=== PATIENT | male | born 1950 | race Caucasian/White ===

== ENCOUNTER 2016-10-19 02:18 | Emergency (ER) | payer MEDICARE ==
--- NOTE | 2016-10-19 02:24 | EDM.PDOC ---
ED HPI GENERAL MEDICAL PROBLEM - General Chief Complaint: General Stated Complaint: UNKNOWN Time Seen by Provider: 10/19/16 02:20 - History of Present Illness INITIAL COMMENTS - FREE TEXT/NARRATIVE: 66-year-old male brought into the emergency room by his brother with frustration and anxiety. Patient is upset claims that nobody is listening to him. The patient is the primary caregiver of 2 elderly parents with multiple health problems and he feels that he is not getting the help he should from other family members. The patient's brother tried to console him however this was not very beneficial. 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 The patient's brother is concerned the patient is getting more irrational and he is unable to cope with taking care of his parents. - Related Data Allergies Allergy/AdvReac Type Severity Reaction Status Date / Time No Known Allergies Allergy Verified 06/05/16 13:03 Home Meds: Home Meds LORazepam [Ativan] 0.5 mg PO Q12H PRN #10 tablet 10/19/16 [Rx] Past Medical History HEENT History: Reports: Cataract Cardiovascular History: Reports: High cholesterol Respiratory History: Reports: None Gastrointestinal History: Reports: Hemorrhoids, Other (see below) Other Gastrointestinal History: difficulty swallowing with eating at times Genitourinary History: Reports: BPH Hematologic History: Reports: Anemia Oncologic (Cancer) History: Reports: None - Infectious Disease History Infectious Disease History: Reports: Chicken pox, Measles, Mumps - Past Surgical History HEENT Surgical History: Reports: Cataract surgery Other HEENT Surgeries/Procedures: calcification in neck Cardiovascular Surgical History: Reports: None GI Surgical History: Reports: Colonoscopy Male Surgical History: Reports: None Dermatological Surgical History: Reports: None Social & Family History - Family History Family Medical History: Noncontributory HEENT: Reports: Hearing impairment, Macular degeneration Other HEENT Family History: MOM- hearing aide, both parents had cataracts Cardiac: Reports: Afib, High cholesterol, [place] Respiratory: Reports: Asthma Other Respiratory Family Hisory: brother GI: Reports: Cholelithiasis, Chronic diarrhea, GERD, Hiatal hernia, Other (see below) Other GI Family History: bowel resection mom : Reports: Other (see below) Other Family History: Dad- BPH OBGYN: Reports: , Other (see below) Other OBGYN Family History: hysterectomy and bladder life Musculoskeletal: Reports: Arthritis, Gout, Osteoporosis Other Musculoskeletal Family History: both parents, mom gout and osteoperosis Neurological: Reports: CVA Endocrine/Metabolic: Reports: Hypothyroidism Other Endocrine/Metabolic Family History: MOM borderline diabetic and hypothroid Hematologic: Reports: Anemia Dermatologic: Reports: Psoriasis Other Dermatologic Family History: brother Oncologic: Reports: Prostate Other Oncologic Family History: dad - Tobacco Use Smoking Status *Q: Never Smoker Second Hand Smoke Exposure: No - Alcohol Use Days Per Week of Alcohol Use: 0 - Recreational Drug Use Recreational Drug Use: No ED ROS GENERAL - Review of Systems Review Of Systems: See Below Constitutional: Reports: no symptoms Respiratory: Reports: No Symptoms Cardiovascular: Reports: No symptoms GI/Abdominal: Reports: No symptoms Neurological: Denies: Confusion, Dizziness, Headache, Numbness, Trouble Speaking , Weakness Psychiatric: Reports: Agitation, Anxiety, Depression, Mood lability. Denies: Confusion, Cravings, Hallucinations, Homicidal ideation, Suicidal ideation ED EXAM, GENERAL - Physical Exam Exam: See Below Exam Limited By: No limitations General Appearance: alert, no apparent distress Head: atraumatic, normocephalic Neck: normal inspection, supple, non-tender, full range of motion Respiratory/Chest: no respiratory distress, lungs clear, normal breath sounds Cardiovascular: regular rate, rhythm, no edema, no murmur GI/Abdominal: Normal Bowel Sounds, Soft, Non-Tender Back Exam: normal inspection. No: CVA tenderness (L), CVA tenderness (R) Psychiatric: anxious, other (Patient denies any suicidal thoughts or ideation) Course - Vital Signs Last Recorded V/S: Last Vital Signs Temp 36.2 C 10/19/16 02:20 Pulse 24 L 10/19/16 02:20 Resp 22 H 10/19/16 02:20 BP 153/89 H 10/19/16 02:20 Pulse Ox 100 10/19/16 02:20 - Orders/Labs/Meds Meds: Medications Discontinued Medications Generic Name Dose Route Start Last Admin Trade Name Freq PRN Reason Stop Dose Admin Lorazepam 0.5 mg 10/19/16 04:06 10/19/16 04:14 Ativan PO 10/19/16 04:07 0.5 mg ONETIME ONE Administration - Re-Assessments/Exams Free Text/Narrative Re-Assessment/Exam: 10/19/16 04:14 Long discussion with the patient and his brother on ways to assess the external stressors going on in the problems the face caring for elderly parents. As the patient is the primary caregiver he carries a heavy burden. The patient feels that at times his family is not contributing as much as they could. This could be exaggerated by the fact that he is the primary caregiver and the other family members have their own busy lifes and schedules. Patient is willing to pursue a counselor. He is willing to try Ativan for the more stressful times. And he agrees to return to the emergency room with any problems. Patient was questioned. He admits to perhaps to being a little depressed he certainly has some anxiety. He denies any suicidal thoughts or wishes and certainly does not want hurt anyone. Departure - Departure Time of Disposition: 04:07 Disposition: Home, Self-Care 01 Clinical Impression: Anxiety - Discharge Information Prescriptions: LORazepam [Ativan] 0.5 mg PO Q12H PRN #10 tablet PRN Reason: Anxiety Referrals: PCP,Unknown [Primary Care Provider] - Praveen Amin MD [Physician] - Forms: ED Department Discharge Additional Instructions: Return to the emergency room with any questions or problems. Followup with [facility] services tomorrow. Call this morning to schedule an appointment. [phone]. You have been given a prescription for Ativan. This will help with anxiety take one tablet as needed every 12 hours. This can cause some mild sedation allow 12 hours after taking this medication before driving or returning to work. Followup with your regular physician later this week.
[2016-10-19 02:33] VITALS: BP 153/89
[2016-10-19] MEDS ORDERED: LORazepam 0.5 MG Tab PO ONE (04:06)
== END 2016-10-19 04:50 | disposition home or self-care (01) ==
LOC: JD.ED 02:18
DX: F41.9 Anxiety disorder, unspecified (principal); E78.00 Pure hypercholesterolemia, unspecified; D64.9 Anemia, unspecified; Z98.49 Cataract extraction status, unspecified eye; Z98.890 Other specified postprocedural states
CPT/HCPCS: 99283; A9270

== ENCOUNTER 2019-03-15 08:47 | Emergency (ER) | payer MEDICARE, OTHER ==
[2019-03-15 09:15] VITALS: BP 165/83; PULSE 87
--- NOTE | 2019-03-15 09:30 | EDM.PDOC ---
ED HPI GENERAL MEDICAL PROBLEM - General Chief Complaint: Fever Stated Complaint: POST SURGICAL ISSUES Time Seen by Provider: 03/15/19 09:23 - History of Present Illness INITIAL COMMENTS - FREE TEXT/NARRATIVE: 68-year-old male presents to the emergency room generally not feeling well. Patient had a left total knee replacement done on Monday at [facility] in [place] with Dr. Cox. Since that time he generally has not been feeling well. Patient cannot describe it. He reports no complications postoperatively. He was discharged from the hospital on Monday. The patient did fall but did not injure his knee on the day of discharge.. He's had no nausea or vomiting no worsening cough. No dysuria or urinary difficulties. He has been having some fevers he was 101.8 at the [facility] clinic across the street prior to coming here. The patient states she's had fevers 101.6 at home intermittently - Related Data Allergies Allergy/AdvReac Type Severity Reaction Status Date / Time No Known Allergies Allergy Verified 06/05/16 13:03 Home Meds: Home Meds LORazepam [Ativan] 0.5 mg PO Q12H PRN #10 tablet 10/19/16 [Rx] Past Medical History HEENT History: Reports: Cataract Cardiovascular History: Reports: High Cholesterol Respiratory History: Reports: None Gastrointestinal History: Reports: Hemorrhoids, Other (See Below) Other Gastrointestinal History: difficulty swallowing with eating at times Genitourinary History: Reports: BPH Hematologic History: Reports: Anemia Oncologic (Cancer) History: Reports: None - Infectious Disease History Infectious Disease History: Reports: Chicken Pox, Measles, Mumps - Past Surgical History HEENT Surgical History: Reports: Cataract Surgery Male Surgical History: Reports: None Musculoskeletal Surgical History: Reports: Knee Replacement, Other (See Below) Dermatological Surgical History: Reports: None Social & Family History - Family History Family Medical History: Noncontributory HEENT: Reports: Hearing Impairment, Macular Degeneration Other HEENT Family History: MOM- hearing aide, both parents had cataracts Cardiac: Reports: Afib, High Cholesterol, [place] Respiratory: Reports: Asthma Other Respiratory Family Hisory: brother GI: Reports: Cholelithiasis, Chronic Diarrhea, GERD, Hiatal Hernia, Other (See Below) Other GI Family History: bowel resection mom : Reports: Other (See Below) Other Family History: Dad- BPH OBGYN: Reports: , Other (See Below) Other OBGYN Family History: hysterectomy and bladder life Musculoskeletal: Reports: Arthritis, Gout, Osteoporosis Other Musculoskeletal Family History: both parents, mom gout and osteoperosis Neurological: Reports: CVA Endocrine/Metabolic: Reports: Hypothyroidism Other Endocrine/Metabolic Family History: MOM borderline diabetic and hypothroid Hematologic: Reports: Anemia Dermatologic: Reports: Psoriasis Other Dermatologic Family History: brother Oncologic: Reports: Prostate Other Oncologic Family History: dad - Tobacco Use Smoking Status *Q: Never Smoker - Recreational Drug Use Recreational Drug Use: No ED ROS GENERAL - Review of Systems Review Of Systems: See Below Constitutional: Reports: Fever, Chills. Denies: No Symptoms HEENT: Reports: No Symptoms Respiratory: Reports: No Symptoms Cardiovascular: Reports: No Symptoms GI/Abdominal: Reports: No Symptoms : Reports: No Symptoms Musculoskeletal: Reports: No Symptoms Skin: Reports: No Symptoms Neurological: Reports: No Symptoms Hematologic/Lymphatic: Reports: No Symptoms ED EXAM, GENERAL - Physical Exam Exam: See Below Exam Limited By: No Limitations General Appearance: Alert, No Apparent Distress, Other (He is afebrile here vital signs otherwise looks stable but it sounds like he had a fever across the street) Head: Atraumatic, Normocephalic Neck: Normal Inspection, Supple, Non-Tender, Full Range of Motion Respiratory/Chest: No Respiratory Distress, Lungs Clear, Normal Breath Sounds, No Accessory Muscle Use, Chest Non-Tender Cardiovascular: Normal Peripheral Pulses, Regular Rate, Rhythm, No Edema, No Murmur GI/Abdominal: Normal Bowel Sounds, Soft, Non-Tender Back Exam: Normal Inspection. No: CVA Tenderness (L), CVA Tenderness (R) Extremities: Normal Inspection, Other (Incision over the left knee looks clean and dry no drainage no abnormal erythema he's got some surrounding bruising noted no calf tenderness) Neurological: Alert, Oriented, Normal Cognition Course - Vital Signs Last Recorded V/S: Last Vital Signs Temp 37.3 C 03/15/19 09:15 Pulse 87 03/15/19 09:15 Resp 16 03/15/19 09:15 BP 165/83 H 03/15/19 09:15 Pulse Ox 95 03/15/19 09:15 - Orders/Labs/Meds Orders: Active Orders 24 hr Category Date Time Status EKG Documentation Completion [RC] STAT Care 03/15/19 09:31 Active CULTURE BLOOD [BC] Stat Lab 03/15/19 09:54 Received CULTURE BLOOD [BC] Stat Lab 03/15/19 10:02 Received Blood Culture x2 Reflex Set [OM.PC] Stat Oth 03/15/19 09:37 Ordered Labs: Laboratory Tests 03/15/19 03/15/19 03/15/19 Range/Units 09:17 09:40 09:40 WBC 12.03 H (4.23-9.07) K/mm3 RBC 3.65 L (4.63-6.08) M/mm3 Hgb 11.2 L D (13.7-17.5) gm/dl Hct 32.8 L (40.1-51.0) % MCV 89.9 D (79.0-92.2) fl MCH 30.7 (25.7-32.2) pg MCHC 34.1 (32.2-35.5) g/dl RDW Std Deviation 43.2 (35.1-43.9) fL Plt Count 189 (163-337) K/mm3 MPV 8.6 L (9.4-12.3) fl Neutrophils % (Manual) 85 H (40-60) % Band Neutrophils % 0 (0-10) % Lymphocytes % (Manual) 7 L (20-40) % Atypical Lymphs % 0 % Monocytes % (Manual) 5 (2-10) % Eosinophils % (Manual) 2 (0.8-7.0) % Basophils % (Manual) 1 (0.2-1.2) Platelet Estimate Adequate RBC Morph Comment Normal ESR 56 H (0-15) mm/hr Sodium (136-145) mEq/L Potassium (3.5-5.1) mEq/L Chloride (98-107) mEq/L Carbon Dioxide (21-32) mEq/L Anion Gap (5-15) BUN (7-18) mg/dL Creatinine (0.7-1.3) mg/dL Est Cr Clr Drug Dosing Estimated GFR (MDRD) (>60) mL/min BUN/Creatinine Ratio (14-18) Glucose (80-115) mg/dL Calcium (8.5-10.1) mg/dL Total Bilirubin (0.2-1.0) mg/dL AST (15-37) U/L ALT (16-63) U/L Alkaline Phosphatase (46-116) U/L Troponin I (0.00-0.056) ng/mL C-Reactive Protein (<1.0) mg/dL Total Protein (6.4-8.2) g/dl Albumin (3.4-5.0) g/dl Globulin gm/dL Albumin/Globulin Ratio (1-2) Urine Color Yellow (Yellow) Urine Appearance Clear (Clear) Urine pH 7.0 (5.0-8.0) Ur Specific [place] 1.020 (1.005-1.030) Urine Protein Trace H (Negative) Urine Glucose (UA) Negative (Negative) Urine Ketones Negative (Negative) Urine Occult Blood Negative (Negative) Urine Nitrite Negative (Negative) Urine Bilirubin Negative (Negative) Urine Urobilinogen 1.0 (0.2-1.0) Ur Leukocyte Esterase Negative (Negative) Urine RBC 0-5 (0-5) /hpf Urine WBC 0-5 (0-5) /hpf Ur Squamous Epith Cells 0-5 (0-5) /hpf Urine Bacteria Few (FEW) /hpf Urine Mucus Few (FEW) /hpf 03/15/19 Range/Units 09:40 WBC (4.23-9.07) K/mm3 RBC (4.63-6.08) M/mm3 Hgb (13.7-17.5) gm/dl Hct (40.1-51.0) % MCV (79.0-92.2) fl MCH (25.7-32.2) pg MCHC (32.2-35.5) g/dl RDW Std Deviation (35.1-43.9) fL Plt Count (163-337) K/mm3 MPV (9.4-12.3) fl Neutrophils % (Manual) (40-60) % Band Neutrophils % (0-10) % Lymphocytes % (Manual) (20-40) % Atypical Lymphs % % Monocytes % (Manual) (2-10) % Eosinophils % (Manual) (0.8-7.0) % Basophils % (Manual) (0.2-1.2) Platelet Estimate RBC Morph Comment ESR (0-15) mm/hr Sodium 133 L (136-145) mEq/L Potassium 3.9 (3.5-5.1) mEq/L Chloride 100 (98-107) mEq/L Carbon Dioxide 26 (21-32) mEq/L Anion Gap 10.9 (5-15) BUN 15 (7-18) mg/dL Creatinine 1.1 (0.7-1.3) mg/dL Est Cr Clr Drug Dosing TNP Estimated GFR (MDRD) > 60 (>60) mL/min BUN/Creatinine Ratio 13.6 L (14-18) Glucose 123 H (80-115) mg/dL Calcium 8.7 (8.5-10.1) mg/dL Total Bilirubin 1.1 H (0.2-1.0) mg/dL AST 30 (15-37) U/L ALT 23 (16-63) U/L Alkaline Phosphatase 59 (46-116) U/L Troponin I < 0.017 (0.00-0.056) ng/mL C-Reactive Protein 9.1 H* (<1.0) mg/dL Total Protein 6.6 (6.4-8.2) g/dl Albumin 3.1 L (3.4-5.0) g/dl Globulin 3.5 gm/dL Albumin/Globulin Ratio 0.9 L (1-2) Urine Color (Yellow) Urine Appearance (Clear) Urine pH (5.0-8.0) Ur Specific [place] (1.005-1.030) Urine Protein (Negative) Urine Glucose (UA) (Negative) Urine Ketones (Negative) Urine Occult Blood (Negative) Urine Nitrite (Negative) Urine Bilirubin (Negative) Urine Urobilinogen (0.2-1.0) Ur Leukocyte Esterase (Negative) Urine RBC (0-5) /hpf Urine WBC (0-5) /hpf Ur Squamous Epith Cells (0-5) /hpf Urine Bacteria (FEW) /hpf Urine Mucus (FEW) /hpf Meds: Medications Discontinued Medications Generic Name Dose Route Start Last Admin Trade Name Freq PRN Reason Stop Dose Admin Oxycodone/Acetaminophen 1 tab 03/15/19 12:28 Percocet 325-5 Mg PO 03/15/19 12:29 ONETIME ONE - Re-Assessments/Exams Free Text/Narrative Re-Assessment/Exam: 03/15/19 12:31 The patient was discharged on oxycodone the hospital and he had pretty good relief with this however he did always heard oxycodone was bad so when he got home he started to wean himself off it and started taking tramadol. I wonder if the tramadol might be causing some of his GI upset and his general feeling of not being right. 03/15/19 12:42 Case was discussed custom Dr. Cruz, on-call for Dr. Cox. Who agrees this could be related to his tramadol usage the patient should return to emergency room or follow-up with Dr. Cox next week if he still having problems. The patient does have a follow-up appointment scheduled for the . Did review all the lab results with Dr. Cruz. A flu screen was done which was also negative. The patient's fevers are somewhat concerning however, he is thought to be too soon to have a knee infection his exam is good. This could be a viral type illness. If the patient is having any more febrile episodes he should return to the emergency room for recheck. Departure - Departure Time of Disposition: 12:47 Disposition: Home, Self-Care 01 Clinical Impression: Nausea, Postsurgical fever - Discharge Information Referrals: Praveen Amin MD [Primary Care Provider] - Forms: ED Department Discharge Additional Instructions: Return to the emergency room with any questions or problems. Return with any fevers. Recheck here tomorrow if you have any concerns. Follow-up with orthopedics at [facility] on the as scheduled. Stop the tramadol. Resume use with the oxycodone as directed. Be sure and take a stool softener with the oxycodone. - My Orders Last 24 Hours: My Active Orders 03/15/19 09:31 EKG Documentation Completion [RC] STAT 03/15/19 09:37 Blood Culture x2 Reflex Set [OM.PC] Stat 03/15/19 09:54 CULTURE BLOOD [BC] Stat 03/15/19 10:02 CULTURE BLOOD [BC] Stat - Assessment/Plan Last 24 Hours: My Active Orders 03/15/19 09:31 EKG Documentation Completion [RC] STAT 03/15/19 09:37 Blood Culture x2 Reflex Set [OM.PC] Stat 03/15/19 09:54 CULTURE BLOOD [BC] Stat 03/15/19 10:02 CULTURE BLOOD [BC] Stat
--- NOTE | 2019-03-15 11:45 | CR ---
Chest: Frontal view of the chest was obtained. Comparison: No prior chest x-ray. Heart size is slightly enlarged. Upper mediastinum is normal. Lungs are clear with no acute parenchymal change. Impression: 1. Heart size slightly enlarged. Nothing acute is otherwise seen on frontal chest x-ray. Diagnostic code #2
--- NOTE | 2019-03-15 11:57 | CR ---
Left knee: AP and lateral views of the left knee were obtained. Comparison: No prior knee exam. Knee prosthesis is seen. Components are aligned. Underlying bony structures are intact. Soft tissue air is noted from the surgical procedure. Skin sarahy are present. Impression: 1. Satisfactory postoperative radiographic appearance of recently placed left knee prosthesis. Diagnostic code #2
[2019-03-15] MEDS ORDERED: Acetaminophen/oxyCODONE 325-5 MG Tab PO ONE (12:28)
== END 2019-03-15 13:30 | disposition home or self-care (01) ==
LOC: JD.ED 08:47
DX: R50.82 Postprocedural fever (principal); R11.0 Nausea
CPT/HCPCS: 36415; 71045; 73562; 80053; 81001; 84484; 85007; 85027; 85652; 86140; 87040; 87804; 93005; 99284; A9270